=== PATIENT | female | born 1975 | race Caucasian/White ===

== ENCOUNTER 2017-06-24 15:54 | Emergency (ER) | payer OTHER ==
[~2017-06-24] VITALS: Ht 162.6 cm; Wt 54.4 kg
[2017-06-24 16:15] VITALS: BP 111/71
--- NOTE | 2017-06-24 16:32 | NUR ---
MARY RUSS WAS PAGED
--- NOTE | 2017-06-24 18:05 | NUR ---
Patient discharged to home in stable condition. Written and verbal after care instructions given. Patient verbalizes understanding of instruction.
== END 2017-06-24 18:06 | disposition home or self-care (01) ==
LOC: ER 16:02
DX: M79.601 Pain in right arm (principal); Z88.6 Allergy status to analgesic agent
CPT/HCPCS: 93971-TC; A4606; Z7610